=== PATIENT | female | born 1990 | race Caucasian/White ===

== ENCOUNTER 2018-08-18 19:20 | Emergency (ER) | payer BC, MEDICAID, OTHER ==
[2018-08-18 20:06] LABS: ALB/GLOB RATIO 1.6 (1.1-1.8); ALBUMIN 4.6 g/dL (4.0-5.0); ALKALINE PHOSPHATASE 81 U/L (35-104); ALT/SGPT 16 U/L (<33); AST/SGOT 17 U/L (10.0-35.0); BLOOD UREA NITROGEN 13 mg/dL (6-20); CREATININE 0.6 mg/dL (0.5-0.9); EST GLOMERULAR FILTRATION RATE > 60 mL/min; GLUCOSE,RANDOM 184 mg/dL (74-109); TOTAL PROTEIN 7.5 g/dL (6.6-8.7)
[2018-08-18 20:07] LABS: ABSOLUTE NEUTROPHIL COUNT 3.45; BASO % 0.8 % (0-6); EOS % 3.9 % (0-6); GRAN % 53.7 % (47-80); HEMATOCRIT 41.1 % (35.0-47.0); HEMOGLOBIN 13.2 gm/dl (11.6-16.0); LYMPH % 34.4 % (16-45); MEAN CELL VOLUME 86.5 fl (81-97); MEAN CORPUSCULAR HEMOGLOBIN 27.8 pg (27-33); MEAN CORPUSCULAR HGB CONC 32.1 g/dl (32-36); MEAN PLATELET VOLUME 9.4 fl (7.4-10.4); MONO % 7.2 % (0-9); PLATELET COUNT 339 K/uL (130-400); RED BLOOD COUNT 4.75 M/uL (3.80-5.40); RED CELL DISTRIBUTION WIDTH 12.9 % (11.5-14.5); WHITE BLOOD COUNT W/O DIFF 6.4 K/uL (4.2-12.2)
--- NOTE | 2018-08-18 20:09 | Emergency Department Record ---
History of Present Illness - General Chief Complaint: Dizziness Stated Complaint: PRESSURE IN HER HEAD,DIZZINESS Time Seen by Provider: 08/18/18 19:54 Source: Patient Mode of Arrival: Ambulatory Limitations: No limitations - History of Present Illness Initial Comments: 28 yo female presents to ED for evaluation of intermittent headache symptoms. Patient reports migraine headaches from age 11, reports recent increased frequency associated with dizziness and tingling intermittently. Patient was seen and K[facility] last week, was given muscle relaxers that have not significantly improved her symptoms. Patient reports that she went to [facility] and was told to come to the ED for imaging of the head. Patient does report taking Ibuprofen for her headache symptoms earlier today. MD Complaint: Other (Headache) Onset/Timin -: Week(s) Description: Lightheadedness History of Same: No History of Trauma: No Severity: Mild Improves With: Medication Worsens With: Movement Associated Symptoms: Other - [place] Coma Scale Eye Response: (4) Open spontaneously Motor Response: (6) Obeys commands Verbal Response: (5) Oriented Royce Total: 15 - Related Data Home Medications Medication Instructions Recorded Confirmed Last Taken Insulin Aspart [Novolog Flexpen] 1 unit SQ TID 08/18/18 08/18/18 Unknown Insulin Detemir [Levemir] 12 unit SQ QAM 08/18/18 08/18/18 Unknown Insulin Detemir [Levemir] 16 unit SQ QPM 08/18/18 08/18/18 Unknown Previous Rx's Medication Instructions Recorded Butalb/Acetaminophen/Caffeine 1 each PO Q6H PRN #10 capsule 08/18/18 [Fioricet 50-300-40 mg Capsule] Allergies Allergy/AdvReac Type Severity Reaction Status Date / Time No Known Drug Allergies Allergy Verified 06/03/14 09:27 Travel Screening - Travel/Exposure Within Last 30 Days Have you traveled within the last 30 days?: No - Travel Symptoms Symptom Screening: None Review of Systems Constitutional: Denies: Chills, Fever, Malaise, Night sweats Eyes: Denies: Eye discharge, Eye pain ENT: Denies: Congestion, Ear pain, Epistaxis Respiratory: Denies: Cough, Dyspnea Cardiovascular: Denies: Chest pain, Dyspnea on exertion Endocrine: Denies: Fatigue, Heat or cold intolerance Gastrointestinal: Denies: Abdominal pain, Nausea, Vomiting Genitourinary: Denies: Incontinence, Retention Musculoskeletal: Denies: Arthralgia, Back pain Skin: Denies: Bruising, Change in color Neurological: Reports: Headache, Tingling, Vertigo. Denies: Abnormal gait, Confusion, Seizure Psychiatric: Denies: Anxiety Hematological/Lymphatic: Denies: Anemia, Blood Clots Past Medical History - SOCIAL HISTORY Smoking Status: Never smoker Alcohol Use: None Drug Use: None - RESPIRATORY Hx Respiratory Disorders: Yes - CARDIOVASCULAR Hx Cardio Disorders: No - NEURO Hx Neuro Disorders: No - GI Hx GI Disorders: No - Hx Genitourinary Disorders: Yes - ENDOCRINE Hx Diabetes: Yes Comment:: A1C 8.2 FBS 90-170 - MUSCULOSKELETAL Hx Musculoskeletal Disorders: Yes Comment:: pain right hand - PSYCH Hx Psych Problems: No - HEMATOLOGY/ONCOLOGY Hx Hematology/Oncology Disorders: No Family Medical History Any Significant Family History?: Yes Hx Cancer: Mother Physical Exam - General General Appearance: Alert, Oriented x3, Cooperative, Mild distress Limitations: No limitations - Head Head exam: Atraumatic, Normocephalic, Normal inspection Head exam detail: negative: Abrasion, Contusion, Grover's sign, General tend erness, Hematoma, Laceration - Eye Eye exam: Normal appearance. negative: Conjunctival injection, Periorbital swelling, Periorbital tenderness, Scleral icterus - ENT Ear exam: negative: Auricular hematoma, Auricular trauma Nasal Exam: negative: Active bleeding, Discharge, Dried blood, Foreign body Mouth exam: negative: Drooling, Laceration, Muffled voice, Tongue elevation - Neck Neck exam: Normal inspection. negative: Meningismus, Tenderness - Respiratory Respiratory exam: Normal lung sounds bilaterally. negative: Rales, Respiratory distress, Rhonchi, Stridor - Cardiovascular Cardiovascular Exam: Regular rate, Normal rhythm, Normal heart sounds - GI/Abdominal GI/Abdominal exam: Soft. negative: Rebound, Rigid, Tenderness - Rectal Rectal exam: Deferred - exam: Deferred - Extremities Extremities exam: Normal inspection. negative: Calf tenderness, Pedal edema, Tenderness - Back Back exam: Denies: CVA tenderness (R), CVA tenderness (L) - Neurological Neurological exam: Alert, Normal gait, Oriented X3 - Psychiatric Psychiatric exam: Normal affect, Normal mood - Skin Skin exam: Normal color. negative: Abrasion Type of lesion: negative: abrasion Course Vital Signs 08/18/18 19:26 Temperature 98.1 F Pulse Rate 74 Respiratory 20 Rate Blood Pressure 150/89 Pulse Ox 99 - Reevaluation(s) Reevaluation #1: 08/18/18 20:10 Laboratory studies were reviewed and are grossly unremarkable for an acute process. Reevaluation #2: 08/18/18 20:54 EKG: NSR 72 Normal axis, normal intervals No acute ST-T wave changes are present. Reevaluation #3: 08/18/18 21:24 CT Brain: Negative for an acute process Patient was updated on her result, will administer Toradol as the patient will be driving home. Patient is in agreement with the plan of care as discussed and has an appointment with her PCP next week. Reevaluation #4: 08/18/18 23:30 Patient was reassessed and reports improvement in her pain symptoms. Patient appears stable for discharge at this time. Medical Decision Making - Lab Data Result diagrams: 08/18/18 19:50 08/18/18 19:50 Disposition Disposition: Discharge Clinical Impression: Headache Qualifiers: Headache type: unspecified Headache chronicity pattern: acute headache Intractability: not intractable Qualified Code(s): R51 - Headache Disposition: Home, Self-Care Condition: (2) Stable Instructions: Acute Headache (ED) Additional Instructions: Return to ED if your symptoms worsen or if you have any concerns. Ibuprofen and Fiorcet as directed. Follow-up with your family doctor in 3-5 days as directed. Prescriptions: Butalb/Acetaminophen/Caffeine [Fioricet 50-300-40 mg Capsule] 1 each PO Q6H PRN #10 capsule PRN Reason: Headache Forms: Patient Portal Access Time of Disposition: 23:30 Quality - Quality Measures Quality Measures: N/A - Blood Pressure Screening Does Patient Have Any of the Following: No Blood Pressure Classification: Pre-Hypertensive BP Reading Systolic Measurement: 150 Diastolic Measurement: 89 Screening for High Blood Pressure: < Pre-Hypertensive BP, F/U Documented > [G8950] Pre-Hypertensive Follow-up Interventions: Referral to alternative/primary care provider.
[2018-08-18] MEDS ORDERED: KETOROLAC 30 MG/ML VIAL IVP ONE (21:24)
[2018-08-18] MEDS ORDERED: BUTALB/ACETAMINOPHEN/CAFFEINE TABLET PO ONE (22:44)
[2018-08-18] MEDS ORDERED: ACETAMINOPHEN 1,000 MG/100 ML BTL IVPB ONE (22:44)
--- NOTE | 2018-08-20 08:59 | CT SCAN REPORT ---
EXAM: CT OF THE HEAD WITHOUT CONTRAST HISTORY: DIZZINESS FOR TWO WEEKS. TECHNIQUE: Standard CT imaging of the head without IV contrast was obtained. Comparison: None. Hand dominance: Unknown. FINDINGS: The ventricles and sulci are normal. No intracranial hemorrhage or extraaxial fluid collection is identified. The coronado white matter differentiation is maintained. No significant mass effect or midline shift. There is minimal mucosal thickening in the maxillary sinuses without layering fluid. The paranasal sinuses are otherwise clear. The mastoid air cells are clear. IMPRESSION: NEGATIVE NONCONTRAST CT OF THE HEAD. JOB NUMBER: [id number] MTDD
== END 2018-08-18 23:37 | disposition home or self-care (01) ==
LOC: ER 19:20
DX: R51 Headache (principal); R42 Dizziness and giddiness; E11.9 Type 2 diabetes mellitus without complications; Z79.4 Long term (current) use of insulin
CPT/HCPCS: 70450; 80053; 85025; 93005; 93010; 96374; 96375; 99284; J1885